=== PATIENT | male | born 1990 | race African-American/Black ===

== ENCOUNTER 2023-07-06 19:56 | Emergency (ER) | payer OTHER, SELFPAY ==
--- NOTE | ~2023-07-06 | CT_ITS ---
EXAMINATION: CT lumbar spine wo con DATE: 07/06/2023 22:24 INDICATION: Lumbar pain TECHNIQUE: Computed tomography (CT) of the lumbar spine was performed without intravenous contrast. A utomated exposure control and iterative reconstruction technique were employed. The dose-length produ ct was 310.68 mGy-cm. COMPARISON: None FINDINGS: 6 mm retrolisthesis L5 on S1. Chronic appearing mild likely physiologic anterior wedging at T11-L2. M ild posterior disc height loss at T10-T11 through L2-L3. Additional mild disc height loss at L4-L5. M ild bilateral sacroiliac osteoarthritis. Paravertebral soft tissues are unremarkable. Postoperative c hanges in the pelvis including anastomosis at the rectosigmoid junction. Normal appendix. Partially v isualized antegrade intramedullary conner and a couple likely interlocking femoral neck screws are seen at the right hip on the mid teacher topogram. The following disc levels are specifically discussed: T10-T11, T11-T12 and T12-L1: There is minimal bilateral facet joint osteoarthritis. There is no neura l foraminal stenosis. There is no central canal stenosis. L1-L2: Disc is mildly bulging. There is mild bilateral facet joint osteoarthritis. There is mild left neural foraminal stenosis. There is mild central canal stenosis. L2-L3: Disc is mildly bulging. There is minimal bilateral facet joint osteoarthritis. There is mild b ilateral neural foraminal stenosis. There is minimal central canal stenosis. L3-L4: Disc is bulging. There is minimal bilateral facet joint osteoarthritis. There is mild bilatera l neural foraminal stenosis. There is mild central canal stenosis. L4-L5: Disc is bulging with right paracentral disc protrusion.. There is minimal bilateral facet join t osteoarthritis. There is mild to moderate bilateral neural foraminal stenosis. There is mild to mod erate central canal stenosis. L5-S1: Disc does not extend beyond the more posterior L5 endplate margin. There is mild bilateral fac et joint osteoarthritis. There is moderate bilateral neural foraminal stenosis. There is no central c anal stenosis. IMPRESSION: 1. Mild lumbar and lower thoracic spondylosis. Reviewed, dictated and finalized at location A. OGICAL INSPECTOR
[2023-07-06 20:27] VITALS: PULSE 64; RESP 14; TEMP 36.6; O2SAT 98
[2023-07-06] MEDS: LIDOCAINE 5% PATCH 1 PATCH TRANSDERM (23:08)
[2023-07-06] MEDS: IBUPROFEN 400 MG TABLET 800 MG PO (23:09)
[2023-07-06] MEDS: CYCLOBENZAPRINE HCL 10 MG TABLET PO (23:09)
[2023-07-06 23:18] LABS: Appearance Urine Clear (Clear); Bilirubin Urine Negative (Negative); Blood Urine Negative (Negative); Color Urine Yellow (Yellow); Glucose Urine UA Negative (Negative); Ketones Urine Negative (Negative); Leukocyte Esterase Ur Negative LEU/UL (Negative); Nitrate Urine Negative (Negative); Protein Urine Negative (Negative); Specific Grav Ur 1.011 (1.001-1.035); Urobilinogen Urine 0.2 mg/dL (<2.0); pH Urine >=9.0 (5.0-9.0)
[2023-07-06 23:38] LABS: Add Urine Microscopic? NO
[2023-07-06 23:57] VITALS: BP 137/82
--- NOTE | 2023-07-06 23:57 | ED.BACK ---
HPI - Back Pain/Injury General Chief Complaint: Back Pain/Injury Stated Complaint: Back pain-got hurt at work Time Seen by Provider: 07/06/23 22:12 History of Present Illness HPI Narrative: 33 y/o M reports for evaluation for low back pain for the past few days. Pt states a couple days ago he was lifting heavy boxes at work we began experiencing low back pain. States the pain significantly worsened today after he was moving a Pallet while at work. States the pain is in his mid and left side of his back. He denies saddle anesthesia, loss of bowel or bladder control or retention, fever, IV drug use or use of immunosuppressants, fever, vomiting, urinary complaints. Related Data Allergies Allergy/AdvReac Type Severity Reaction Status Date / Time No Known Allergies Allergy Verified 07/06/23 19:58 Review of Systems Review of Systems: CONSTITUTIONAL: Denies fever, chills, or sweats. EYES: Denies visual changes, redness, or discharge. ENT: Denies rhinorrhea, congestion, sore throat, or otalgia. CARDIOVASCULAR: Denies chest pain, palpitations, or edema. RESPIRATORY: Denies cough or dyspnea. GASTROINTESTINAL: Denies abdominal pain, nausea, vomiting, or diarrhea. GENITOURINARY: Denies dysuria or hematuria. SKIN: Denies rash or itching. MUSCULOSKELETAL: See HPI NEUROLOGIC: Denies headache, numbness, or weakness. PSYCHIATRIC: Denies anxiety or depression. Exam Narrative: GENERAL: Well-appearing, well-nourished, and in no acute distress. HEAD: Normocephalic, atraumatic. NECK: Supple. CHEST: Clear to auscultation. No respiratory distress. HEART: Regular rate and rhythm. No murmur heard. Normal peripheral pulses. ABDOMEN: Soft, nontender, nondistended, normal active bowel sounds. BACK: No midline thoracic spinous tenderness, step-offs or deformities. There is midline lumbar tenderness to palpation without overlying skin changes, step-offs or deformities. Tenderness to the left paraspinous muscles. No tenderness right paraspinous muscles. No CVA tenderness. EXTREMITIES: Normal range of motion. No edema. 5/5 strength in BLE. No saddle anesthesia. Sensation intact throughout. SKIN: Warm, dry, no rash. NEURO: No focal deficits. Alert and oriented x3 Course Vital Signs Vital signs: Vital Signs Temperature 97.8 F 07/06/23 20:27 Pulse Rate 64 07/06/23 20:27 Respiratory Rate 14 07/06/23 20:27 Pulse Oximetry 98 07/06/23 20:27 Temperature 97.8 F 07/06/23 20:27 Pulse Rate 64 07/06/23 20:27 Respiratory Rate 14 07/06/23 20:27 Blood Pressure 137/82 07/06/23 23:57 Pulse Oximetry 98 07/06/23 20:27 MDM - Back Pain/Injury MDM Narrative Medical decision making narrative: 33-year-old male reports for evaluation for low back pain after he injured it at work and then re-injured it again today. See HPI for further history. Vitals are stable he is well appearing on exam. Exam not consistent with cauda equina. No red flag signs other than midline spinous tenderness, therefore CT obtained. CT lumbar spine shows mild lumbar and lower thoracic spondylosis. Urinalysis not consistent with UTI. Labs and imaging discussed with patient. He received ibuprofen, Flexeril, lidocaine and [place]. Plan to discharge him home with Flexeril, naproxen and lidocaine patches. Encouraged follow-up with PCP. Strict ED return precautions discussed. He is agreeable to plan verbalized understanding. Discharged in stable condition. Lab Data Labs: Lab Results 07/06/23 Range/Units 23:12 Urine Color Yellow (Yellow) Urine Appearance Clear (Clear) Urine pH >=9.0 H (5.0-9.0) Ur Specific [place] 1.011 (1.001-1.035) Urine Protein Negative (Negative) mg/dL Urine Glucose (UA) Negative (Negative) mg/dL Urine Ketones Negative (Negative) mg/dL Ur Blood (Man) Negative (Negative) Urine Nitrate Negative (Negative) Urine Bilirubin Negative (Negative) Urine Urobilinogen 0.2 (<2.0) mg/dL
[2023-07-07] MEDS: HYDROcodone/acetaminophen (*CRX) 5-325 MG TABLET 1 TAB PO (00:18)
== END 2023-07-07 00:23 | disposition home or self-care (01) ==
PROVIDERS: Emergency Provider Physician Assistant; PCP Physician Assistant
DX: S39.012A Strain of muscle, fascia and tendon of lower back, initial encounter (principal); M47.816 Spondylosis without myelopathy or radiculopathy, lumbar region; M47.814 Spondylosis without myelopathy or radiculopathy, thoracic region; X50.0XXA Overexertion from strenuous movement or load, initial encounter
CPT/HCPCS: 72131; 81003; 99284; A9270